=== PATIENT | female | born 1985 | race Caucasian/White ===

== ENCOUNTER 2019-10-09 07:45 | Day surgery (SDC) | payer OTHER ==
[~2019-10-09] VITALS: Ht 165.1 cm; Wt 103.4 kg
[~2019-10-09 07:45] MED LIST: EXCEDRIN EXTRA1 EAC1 PO; VITAMIN D310 MC4 PO
[2019-10-09] MEDS ORDERED: OXYCODON-ACETA1 EAC2 PO (09:34)
[2019-10-09] MEDS ORDERED: TYLENOL EXTRA500 MG PO (09:34)
[2019-10-09] MEDS ORDERED: IBUPROFEN600 MG PO (09:34)
[2019-10-09] MEDS ORDERED: PERCOCET 7.5-31 EACH PO (10:27)
--- NOTE | 2019-10-13 16:34 | PATH ---
[facility] [address], [place] [address] Signed SPECIMEN(S): A LEFT LATERAL BREAST MASS SPECIMEN SOURCE: A. LEFT LATERAL BREAST MASS CLINICAL HISTORY: Left palpable breast mass. 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 - Background breast tissue with biopsy site change. COMMENT: As part of [facility]' Quality Improvement Program, this case was reviewed by another member of our pathology staff. NAL:NRT:cml:C2NR MICROSCOPIC EXAMINATION: Histologic sections of all submitted blocks are examined by light microscopy. These findings, together with the gross examination, support the pathologic diagnosis. GROSS DESCRIPTION: The specimen, labeled "Miah Skinner," and designated on the requisition "left lateral breast mass," is received in formalin and consists of 36 gram oriented portion of yellow-castillo fibroadipose tissue that is 5.8 x 4.3 x 2.9 cm. Per the requisition a black suture identifies the dominant lesion. The specimen is the specimen is inked and serially sectioned perpendicular to the long axis revealing a 1.6 x 1.5 x 1.5 cm pink, well-circumscribed nodule that is focally hemorrhagic. This nodule has an attached black suture, abuts the soft tissue resection margin. Approximately 20% of the remaining specimen is a yellow-castillo greasy adipose tissue and 80% is a white-castillo focally hemorrhagic fibrous tissue. [employer] sections are submitted in three cassettes. Cassette summary: (A1-A2) nodule to closest soft tissue resection margin, perpendicular (A3) uninvolved focally hemorrhagic fibroadipose tissue. Cold ischemia time: Insufficient data to calculate. PATIENT NAME: MIAH SKINNER PATHOLOGY DATE OF : 87 REPORT #: [id number] PHYSICIAN: ALLY DURAND PCP: BERTIN GARCIA PAC REPORT IS CONFIDENTIAL AND NOT TO BE RELEASED WITHOUT AUTHORIZATION [facility] [address] [address] Signed Approximate Formalin time: 12-24 hours. FB (under the direct supervision of a pathologist) The Gross Description was prepared using a voice recognition system. The report was reviewed for accuracy; however, sound-alike word errors, addition and/or deletions may occur. If there is any question about this report, please contact Client Services. PERFORMING LABORATORY: The technical component was performed by [facility] [address] (Director Of Archives: Roxanna Solis MD; CLIA# [id number]). Professional interpretation was performed by [facility], [address] [address] (CLIA# [id number]). Diagnostician: Pura Park MD Pathologist Electronically Signed 10/13/2019 Copies: ~ PATIENT NAME: MIAH SKINNER PATHOLOGY DATE OF : 87 REPORT #: [id number] PHYSICIAN: ALLY DURAND PCP: BERTIN GARCIA PAC REPORT IS CONFIDENTIAL AND NOT TO BE RELEASED WITHOUT AUTHORIZATION
--- NOTE | 2019-10-14 14:21 | OR ---
[facility] [address] [place], [place] [address] Signed DATE OF OPERATION: 10/09/2019 SURGEON: Fallon Garner MD PREOPERATIVE DIAGNOSIS: Left lateral breast mass, image-guided biopsy of fibroepithelial lesion, not otherwise specified. POSTOPERATIVE DIAGNOSIS: Left lateral breast mass, image-guided biopsy of fibroepithelial lesion, not otherwise specified. PROCEDURE: Open excisional breast biopsy. ANESTHESIA: General LMA, Sunday Ferris CRNA and local 10 mL of 0.25% Marcaine with epinephrine. INDICATIONS: This 33-year-old woman, who is a patient of Bertin Denney PA-C and was found to have a palpable left breast mass. An ultrasound-guided core biopsy by Dr. Kelly demonstrated possible fibroadenoma, but ambiguity in the final interpretation "describing only a fibroepithelial lesion, not otherwise specified." The lesion was noted to be palpable in the left lateral aspect of the [facility] [place]. All of her imaging studies were at [facility]. She is admitted at this time to undergo excision of the mass due to the ambiguity of the pathologic interpretation. She has no family history of breast cancer that she is aware of and has had no other breast symptoms. FINDINGS: The lesion was well circumscribed, most likely a fibroadenoma (benign). Complete excision was undertaken of the clinically negative margin. Final pathology is pending. There were no complications. DESCRIPTION OF PROCEDURE: The patient was brought to the operating room, given a general anesthetic by LMA technique. The left breast was prepared with a chlorhexidine solution and draped sterilely. Preoperative antibiotic Ancef was given. Sequential compression device stockings were used. A curvilinear incision was made directly over the palpable mass in the lateral aspect of the left breast. Dissection was carried through the dermis with Electronically Signed By: FALLON GARNER MD 10/14/19 1421 PATIENT NAME: MIAH SKINNER OPERATIVE REPORT DATE OF : 87 REPORT #: [id number] PHYSICIAN: FALLON GARNER MD PCP: BERTIN DENENY PAC REPORT IS CONFIDENTIAL AND NOT TO BE RELEASED WITHOUT AUTHORIZATION [facility] [address] [place], [place] [address] Signed electrocautery. Palpation revealed the mass to be rather distinct. Wide excision was undertaken with electrocautery. The mass was excised in total. The mass was marked with a silk suture for orientation. The wound was secured and hemostasis with electrocautery. Irrigation was undertaken. Parenchymal reapproximation with interrupted 2-0 Vicryl was undertaken in multiple layers and the skin closed with running subcuticular 3-0 Vicryl. Steri-Strips were applied as was a silver sponge adherent dressing. She was ultimately extubated and transferred to the recovery room in good condition and suffered no complication. ESTIMATED BLOOD LOSS: Less than 10 mL. MD KEIKO Pierson/WINIFRED /[id number] cc: Bertin Denney PA-C Copies: BERTIN DENNEY ~ Electronically Signed By: FALLON GARNER MD 10/14/19 1421 PATIENT NAME: MIAH SKINNER OPERATIVE REPORT DATE OF : 87 REPORT #: [id number] PHYSICIAN: FALLON GARNER MD PCP: BERTIN DENNEY REPORT IS CONFIDENTIAL AND NOT TO BE RELEASED WITHOUT AUTHORIZATION
== END 2019-10-09 11:11 | disposition home or self-care (01) ==
LOC: OPS 07:45 → DS 07:45 → OPS 08:45
PROVIDERS: Surgery
PROC: 0HB5XZX Excision of Chest Skin, External Approach, Diagnostic (ICD-10-PCS; principal; 2019-10-09 08:45)
DX: D24.2 Benign neoplasm of left breast (principal)
CPT/HCPCS: 00404; J0690; J1100; J1885; J2001; J2405; J2704; J3010; J7121